=== PATIENT | female | born 1980 | race African-American/Black ===

== ENCOUNTER 2017-02-13 01:14 | Emergency (ER) | payer OTHER ==
[~2017-02-13] VITALS: Ht 160 cm; Wt 65.4 kg
[~2017-02-13 01:14] MED LIST: ATIVAN1 MG PO; AUGMENTIN875 MG PO; BENADRYL ALLERG25 MG PO; IBUPROFEN600 MG PO; MOTRIN800 MG PO; NAPROSYN500 MG PO; NAPROXEN500 MG PO; NEXIUM40 MG PO; PEN-VEE K,VEET500 MG PO; PERCOCET 5/31 TABLET PO; PROAIR HFA8.5 GM IH; SUBOXONE 8 MG-1 EAC2 SL; TRAMADOL HCL50 MG PO; ULTRAM50 MG PO; VALIUM10 MG PO; VYVANSE20 MG PO
[2017-02-13 01:54] LABS: ADD MIUA? YES; BILIRUBIN NEGATIVE; BLOOD NEGATIVE; COLOR YELLOW ((YELLOW)); GLUCOSE (STRIP) NEGATIVE; INTERNAL CONTROL VALID? YES; KETONES NEGATIVE; LEUKOCYTES NEGATIVE; NITRITE NEGATIVE; PROTEIN (STRIP) NEGATIVE; SPECIFIC GRAVITY 1.018 (1.000-1.030)
[2017-02-13 02:02] LABS: BACTERIA NONE SEEN /HPF; EPITHELIAL CELLS RARE /HPF; MUCUS TRACE /LPF; RED BLOOD CELLS 0-5 /HPF (0-5); UCUL ADDED? NO; WHITE BLOOD CELLS 0-5 /HPF (0-5)
[2017-02-13 02:11] LABS: EOSINOPHIL (%) 0.5 % (0-5); EOSINOPHIL COUNT 0.1 K/uL (0-0.3); IMMATURE GRANULOCYTE (%) 0.3 % (0.0-0.7); INSTRUMENT ABS NEUTROPHIL CT 12.1 K/uL; LYMPHOCYTE COUNT 2.6 K/uL (1.0-2.8); MCH 30.5 PG (29.0-34.0); MCHC 34.4 G/DL (30.0-36.0); MCV 88.5 FL (83-99); MEAN PLAT.VOLUME 9.5 uM^3 (9.5-12.4); MONOCYTE (%) 4.1 % (3-12); MONOCYTE COUNT 0.6 K/uL (0-0.8); NEUTROPHIL (%) 78.3 % (45-76); NEUTROPHIL COUNT 12.1 K/uL (1.8-6.4); PLATELET COUNT 255 K/uL (156-360); RBC DIS.WIDTH-CV 12.3 % (11.8-14.6); RBC DIS.WIDTH-SD 40.1 % (39-53); RED BLOOD COUNT 4.07 M/uL (3.80-5.20); WHITE BLOOD COUNT 15.5 K/uL (4.1-10.2)
[2017-02-13 02:22] LABS: CHLORIDE 107 mEq/L (99-109); POTASSIUM 3.5 mEq/L (3.7-5.4); SODIUM 139 mEq/L (136-147)
[2017-02-13 02:25] LABS: GLUCOSE 117 mg/dL (70-99)
[2017-02-13 02:26] LABS: ANION GAP 10 MEQ/L (2-14)
[2017-02-13 02:27] LABS: TOTAL BILIRUBIN 0.3 mg/dL (0.0-1.0)
[2017-02-13 02:28] LABS: ALKALINE PHOSPHATASE 133 IU/L (3-129); GFR ESTIMATE (CALCULATED) > 59 mL/min/
[2017-02-13 02:29] LABS: UREA NITROGEN (BUN) 12 mg/dL (9-23)
[2017-02-13 02:32] LABS: LIPASE 34 U/L (1.0-51.0)
[2017-02-13] MEDS ORDERED: CARAFATE1 GM PO (03:32)
[2017-02-13] MEDS ORDERED: PROMETHAZINE HC25 M1 PO (03:32)
[2017-02-13 03:39] VITALS: BP 118/69
== END 2017-02-13 03:40 | disposition home or self-care (01) ==
LOC: EME → EDBD 01:14 → EME 01:14
PROVIDERS: Emergency Medicine
DX: R10.13 Epigastric pain (principal); K29.70 Gastritis, unspecified, without bleeding; Z87.11 Personal history of peptic ulcer disease; K80.20 Calculus of gallbladder without cholecystitis without obstruction; J45.909 Unspecified asthma, uncomplicated; F10.21 Alcohol dependence, in remission; K70.9 Alcoholic liver disease, unspecified; F17.200 Nicotine dependence, unspecified, uncomplicated
CPT/HCPCS: 76705; 80053; 81003; 83690; 84703; 85025; 99281; 99284; J2765; S0028

== ENCOUNTER 2017-06-18 09:05 | Emergency (ER) | payer OTHER ==
[~2017-06-18] VITALS: Ht 160 cm; Wt 65.0 kg
[~2017-06-18 09:05] MED LIST changes: +BENTYL10 MG PO; +CARAFATE1 GM PO; +COLACE100 MG PO; +ENDOCET 5-3251 EACH PO; +NEURONTIN300 MG PO; +OMEPRAZOLE40 M1 PO; +PROMETHAZINE HC25 M1 PO; +SEROQUEL400 MG PO; +SYMBICORT60 INHALAT IH; +TENORMIN25 MG PO; +TRILEPTAL300 MG PO; +VENTOLIN HFA18 GM IH
[2017-06-18 09:13] VITALS: BP 90/57
== END 2017-06-18 11:29 | disposition left against medical advice (07) ==
LOC: EME 09:05
DX: R51 Headache (principal); R53.1 Weakness; R11.10 Vomiting, unspecified; Z53.21 Procedure and treatment not carried out due to patient leaving prior to being seen by health care provider
CPT/HCPCS: 80048; 81003; 85027; 87502

== ENCOUNTER 2017-06-23 16:31 | Emergency (ER) | payer OTHER ==
[~2017-06-23] VITALS: Ht 160 cm; Wt 84.9 kg
[2017-06-23] MEDS ORDERED: AUGMENTIN875 MG PO (18:21)
[2017-06-23 19:21] VITALS: BP 122/69
== END 2017-06-23 19:21 | disposition home or self-care (01) ==
LOC: EME 16:31
DX: M79.604 Pain in right leg (principal); R60.0 Localized edema; M71.21 Synovial cyst of popliteal space [Baker], right knee; J45.909 Unspecified asthma, uncomplicated; Z88.2 Allergy status to sulfonamides; F17.200 Nicotine dependence, unspecified, uncomplicated
CPT/HCPCS: 93971; 99281; 99283

== ENCOUNTER 2017-08-19 10:26 | Emergency (ER) | payer OTHER ==
[~2017-08-19] VITALS: Ht 160 cm; Wt 62.3 kg
[2017-08-19] MEDS ORDERED: LYRICA PO (11:32)
[2017-08-19 12:08] LABS: HEMATOCRIT 34.7 % (36.0-46.0); HEMOGLOBIN 12.6 G/DL (11.9-15.5); MCH 31.6 PG (29.0-34.0); MCHC 36.3 G/DL (30.0-36.0); PLATELET COUNT 310 K/uL (156-360); RBC DIS.WIDTH-CV 12.8 % (11.8-14.6); RBC DIS.WIDTH-SD 40.9 % (39-53); RED BLOOD COUNT 3.99 M/uL (3.80-5.20); WHITE BLOOD COUNT 13.9 K/uL (4.1-10.2)
[2017-08-19 12:17] LABS: ALBUMIN 3.9 g/dL (3.2-4.8); CHLORIDE 110 mEq/L (99-109); POTASSIUM 3.3 mEq/L (3.7-5.4); SODIUM 140 mEq/L (136-147)
[2017-08-19 12:20] LABS: GLUCOSE 91 mg/dL (70-99); TOTAL PROTEIN 7.4 g/dL (6.4-8.3)
[2017-08-19 12:22] LABS: TOTAL BILIRUBIN 0.5 mg/dL (0.0-1.0)
[2017-08-19 12:23] LABS: ALKALINE PHOSPHATASE 58 IU/L (3-129); CREATININE 0.7 mg/dL (0.6-1.3); GFR ESTIMATE (CALCULATED) > 59 mL/min/; SERUM ETHYL ALCOHOL < 10 mg/dL
[2017-08-19 12:24] LABS: UREA NITROGEN (BUN) 5 mg/dL (9-23)
[2017-08-19 12:25] LABS: AST (GOT) 12 IU/L (2-34)
[2017-08-19 12:26] LABS: ALT (GPT) 11 IU/L (3-49)
[2017-08-19 12:27] LABS: LIPASE 9 U/L (1.0-51.0)
[2017-08-19] MEDS ORDERED: ZOFRAN4 MG PO (12:33)
[2017-08-19] MEDS ORDERED: HYDROXYZINE PAM50 MG PO (12:33)
[2017-08-19 12:44] VITALS: BP 110/66
== END 2017-08-19 12:47 | disposition home or self-care (01) ==
LOC: EME 10:26
PROVIDERS: Emergency Medicine
DX: F10.10 Alcohol abuse, uncomplicated (principal); Y90.0 Blood alcohol level of less than 20 mg/100 ml; J45.909 Unspecified asthma, uncomplicated; F17.200 Nicotine dependence, unspecified, uncomplicated; F32.9 Major depressive disorder, single episode, unspecified; Z88.2 Allergy status to sulfonamides; Z88.8 Allergy status to other drugs, medicaments and biological substances
CPT/HCPCS: 80053; 83690; 85027; 99281; 99284; G0480; Q0177